=== PATIENT | male | born 1980 | race Hispanic/Latino ===

== ENCOUNTER 2019-10-10 21:50 | Inpatient (IN) | payer SELFPAY ==
[2019-10-10] MEDS ORDERED: Lorazepam 2 MG/ML VIAL ONE (22:42)
[2019-10-10] MEDS ORDERED: Adacel (T-DAP) 0.5 ML SYRINGE ONE (22:42)
[2019-10-10] MEDS ORDERED: Lorazepam 2 MG/ML VIAL SLOW IVP PRN ×2 (23:11→23:14)
[2019-10-10] MEDS ORDERED: Magnesium 2 GM/50 ML 2 GM in Premix Bag 1 BAG IVPB SCH (23:15)
[2019-10-10] MEDS ORDERED: Ondansetron ODT 4 MG TAB PO PRN (23:17)
[2019-10-10] MEDS ORDERED: Ondansetron PF 4 MG/2 ML Vial IVP PRN (23:17)
[2019-10-10] MEDS ORDERED: Diazepam 5 MG TAB PO PRN (23:39)
[2019-10-10] MEDS ORDERED: Diazepam 5 MG TAB PO SCH (23:45)
[2019-10-10] MEDS ORDERED: Thiamine HCl 200 MG/2 ML VIAL IM SCH (23:45)
--- NOTE | 2019-10-11 00:18 | PDOC.HHP ---
Hospitalist HPI - History of Present Illness Seizure, alcohol withdrawal History of Present Illness: PCP: NONE The patient is a 39/M with PMH significant for alcohol and drug abuse presents to the ER for the above complaint. The patient reports that he checked into a rehabilitation clinic, called [facility] on Wednesday morning. Last drink was the morning of his voluntary admission into the rehab center. This morning, he reports feeling nauseated and vomiting, unable to hold down any liquids. He does not recall anything after his vomiting spell, but he was told that he had a seizure. EMS was called. He has an extensive history of abusing alcohol. Reports drinking 2/3 of bourbon bottle daily for 5 years, then over the past 1-2 years changing to beer, drinking three, 24oz beers daily. ED Course: [place] [facility] CT brain + left scalp hematoma CT spine negative K 2.9 Na 139 LFTs elevated WBC 3.1 Plat 66 Given: 2 Ativan 60mEq potassium 1L NS Transfered to [place] [facility]: Given: tdap ativan 2mg IVP Allergies: Levaquin Home Meds: None Hospitalist ROS - Review of Systems Constitutional: denies: fever, chills Eyes: denies: pain, vision change, conjunctivae inflammation, eyelid inflammation, redness, other ENT: denies: ear pain, ear discharge, nose pain, nose discharge, nose congestion , mouth pain, mouth swelling, throat pain, throat swelling, other Respiratory: denies: cough, dry, shortness of breath, hemoptysis, SOB with excertion, pleuritic pain, sputum, wheezing, other Cardiovascular: denies: chest pain, palpitations, orthopnea, paroxysmal noc. dyspnea, edema, light headedness, other Gastrointestinal: reports: nausea, vomiting. denies: abdominal pain, diarrhea, constipation Genitourinary: denies: dysuria, frequency, incontinence, hematuria, retention, other Skin: denies: rash, bruising Neurological: denies: numbness, change in speech Hospitalist History - Past Medical History Source: patient Psych: reports: Addictions (alcohol and drug abuse) - Past Surgical History Past Surgical History: reports: Other (rhinoplasty) - Family History Family History: reports: Other (Father alcoholism) - Social History Smoking Status: Former smoker Tobacco Type: cigarettes Alcohol: reports: Heavy Drugs: reports: marijuana Living Situation: Alone Occupation: Lives in [place], currently unemployed Activity level: independent ambulation - Exam General Appearance: NAD, awake alert Eye: anicteric sclera ENT - other findings: right scalp hematoma, abrasion, superficial bite brooke on ant. tongue Neck: supple, no JVD Heart: RRR, no murmur, no gallops, no rubs, normal peripheral pulses Respiratory: CTAB, no wheezes, no rales, no ronchi, no tachypnea Gastrointestinal: soft, non-tender, normal bowel sounds, no guarding, no rigidity Extremities: no cyanosis, no edema Neurological: cranial nerve grossly intact, no focal deficits Musculoskeletal: normal tone, normal strength Psychiatric: normal affect, A&O x 3 Hospitalist Results - Radiology Interpretation CT scan - head Status: report reviewed by me Other Status: report reviewed by me Additional Comment: CT c spine negative Hospitalist H&P A/P - Problem (1) Alcohol withdrawal Code(s): F10.239 - ALCOHOL DEPENDENCE WITH WITHDRAWAL, UNSPECIFIED Status: Acute Assessment and Plan: Admit to stroke unit, inpatient status Expected stay > 2 midnights Will give IVF Initiate ASE protocol Librium scheduled and ativan prn Neuro checks q 4 hours Seizure precautions, fall precautions Start thiamine, B12, folic acid and multivitamin Give 2gm magnesium IVPB Check UDS CMP and CBC and mag level in am (2) Seizure Code(s): R56.9 - UNSPECIFIED CONVULSIONS Status: Acute Assessment and Plan: Likely secondary to alcohol withdrawals initiate seizure precautions ASE protocol Scheduled librium and ativan prn (3) Hypokalemia Code(s): E87.6 - HYPOKALEMIA Status: Acute Assessment and Plan: K 2.9, given 60mEq in ER Will give IVF with potassium Will check mag level Recheck level in am (4) Elevated LFTs Code(s): R79.89 - OTHER SPECIFIED ABNORMAL FINDINGS OF BLOOD CHEMISTRY Status : Acute Assessment and Plan: Likely secondary to alcohol abuse Not coagulopathic, does have low platelet count Will avoid hepatotoxic meds Will recheck in am (5) Alcohol abuse Code(s): F10.10 - ALCOHOL ABUSE, UNCOMPLICATED Status: Chronic Assessment and Plan: Patient is currently seeking help to quit Staying at [facility] (6) Thrombocytopenia Code(s): D69.6 - THROMBOCYTOPENIA, UNSPECIFIED Status: Acute Assessment and Plan: Platelets 66,000 INR 1.2 NO pharm DVT prophylaxis Will continue to monitor Will check CBC in am - Plan Plan: Consult PT Protonix GI prophylaxis SCDs DVT prophylaxis, no pharm prophylaxis Full Code Contact is sisterChyna at [phone] Morgan.
[2019-10-11] MEDS ORDERED: Diazepam 5 MG TAB PO PRN (04:00)
[2019-10-11] MEDS: D5 1/2 NS w/20 mEq KCL 1,000 ML IV SCH ×3 (04:25→16:06)
[2019-10-11 05:07] LABS: ALT (SGPT) 216 U/L (8-55); AST (SGOT) 259 U/L (5-34); Albumin 3.7 g/dL (3.5-5.0); Alkaline Phosphatase 145 U/L (40-110); Anion Gap 15 mmol/L (10-20); BUN (Urea Nitrogen) Less than 4 mg/dL (8.9-20.6); Bilirubin, Total 2.9 mg/dL (0.2-1.2); Calc. Creatinine Clearance 0 mL/min (70-130); Calcium 8.4 mg/dL (7.8-10.44); Carbon Dioxide 26 mmol/L (22-29); Chloride 99 mmol/L (98-107); Estimated GFR-MDRD Greater than 90; Globulin 2.5 g/dL (2.4-3.5); Glucose 105 mg/dL (70-105); Magnesium 2.3 mg/dL (1.6-2.6); Protein, Total 6.2 g/dL (6.0-8.3); Sodium 137 mmol/L (136-145)
[2019-10-11 05:22] VITALS: BMI 27.6
[2019-10-11] MEDS ORDERED: Potassium Chloride 20 MEQ TAB PO SCH (05:30)
[2019-10-11] MEDS ORDERED: cloNIDine 0.1 MG TAB PO PRN (05:37)
[2019-10-11 06:14] LABS: Amphetamine Not Detected (NotDetected); Barbiturates Screen Not Detected (NotDetected); Benzodiazepine Screen Detected (NotDetected); Cocaine Metabolite Screen Not Detected (NotDetected); Medtox Control Line Valid? VALID (VALID); Medtox Reader # READER 4; Methadone Not Detected (NotDetected); Methamphetamine Not Detected (NotDetected); Opiate Screen Not Detected (NotDetected); Oxycodone Screen Not Detected (NotDetected); Phencyclidine (PCP) Not Detected (NotDetected); THC/Cannabinoid Screen Not Detected (NotDetected); Tricyclic Screen Not Detected (NotDetected)
[2019-10-11 06:29] LABS: #Lymphocytes 0.8 thou/uL (1.20-3.40); #Monocytes 0.3 thou/uL (0.11-0.59); #Neutrophils 2.5 thou/uL (1.40-6.50); %Basophils 1.2 % (0.0-1.0); %Eosinophils 0.7 % (0.0-10.0); %Lymphocytes 21.9 % (21.0-51.0); %Monocytes 7.3 % (0.0-10.0); %Neutrophils 68.9 % (42.0-75.0); Hemoglobin 12.7 g/dL (14.0-18.0); Mean Corpuscular HGB CONC 33.7 g/dL (32.0-36.0); Mean Corpuscular Hemoglobin 31.9 pg (27.0-31.0); Mean Corpuscular Volume 94.8 fL (78.0-98.0); Mean Platelet Volume 9.3 fL (7.4-10.4); Platelet Count 63 thou/uL (130-400); RBC Distribution Width 14.8 % (11.5-14.5); Red Blood Cell (RBC) Count 3.98 mill/uL (4.70-6.10); White Blood Cell (WBC) Count 3.7 thou/uL (4.8-10.8)
[2019-10-11 06:30] LABS: Platelet Morphology Comment Appears Decreased
[2019-10-11] MEDS: cloNIDine 0.1 MG TAB PO SCH ×2 (08:24→20:13)
[2019-10-11] MEDS: Folic Acid 1 MG TAB PO SCH (08:24)
[2019-10-11] MEDS: Thiamine 100 MG TAB PO SCH (08:25)
[2019-10-11] MEDS: Cyanocobalamin (Vitamin B-12) 1,000 MCG TAB PO SCH (08:25)
[2019-10-11] MEDS: Magnesium Oxide 400 MG TAB PO SCH (08:25)
[2019-10-11] MEDS: Multivit, Therapeutic 1 TAB PO SCH (08:26)
[2019-10-11] MEDS: Potassium Chloride 20 MEQ TAB PO SCH ×2 (08:27→16:06)
--- NOTE | 2019-10-11 11:58 | PDOC.HOSPP ---
- Subjective Encounter Date: 10/11/19 Encounter Time: 11:50 Subjective: f/u for ETOH withdrawal seizure on current Librium/Ativan/Thiamine/B12. No recurrent seizure activity noted per nursing. Feels tired overall but improved. - Objective Vital Signs & Weight: Vital Signs (12 hours) Temp Pulse Pulse Pulse Resp BP BP 10/11/19 11:09 97.9 F 86 18 10/11/19 09:26 94 94 123/83 10/11/19 08:21 121/82 10/11/19 07:16 98.0 F 91 16 10/11/19 03:19 97.9 F 112 H 16 BP BP Pulse Ox 10/11/19 11:09 132/85 98 10/11/19 09:26 124/87 10/11/19 08:21 99 10/11/19 07:16 121/82 99 10/11/19 03:19 126/89 97 Weight Weight 181 lb 11.2 oz Result Diagrams: 10/11/19 04:32 10/11/19 04:32 Additional Labs: Laboratory Tests 10/10/19 10/11/19 10/11/19 18:47 04:32 04:32 Potassium 2.9 L* Total Bilirubin 2.1 H 2.9 H AST 338 H 259 H ALT 270 H 216 H TSH 3rd Generation 1.7420 U Benzodiazepines Scrn 10/11/19 05:50 Potassium Total Bilirubin AST ALT TSH 3rd Generation U Benzodiazepines Scrn Detected H Radiology Reviewed by me: Yes (CT brain - no acute process) EKG Reviewed by me: Yes (Tele - ) Hospitalist ROS - Medication Medications: Active Medications Generic Name Dose Route Start Last Admin Trade Name Latrice PRN Reason Stop Dose Admin Chlordiazepoxide HCl 10 mg 10/11/19 09:00 10/11/19 08:22 Librium PO 10 mg TID NICHOLAS Administration Clonidine 0.1 mg 10/11/19 09:00 10/11/19 08:24 Catapres PO Not Given BID NICHOLAS Cyanocobalamin 1,000 mcg 10/11/19 09:00 10/11/19 08:25 Vitamin B-12 PO 1,000 mcg DAILY NICHOLAS Administration Folic Acid 1 mg 10/11/19 09:00 10/11/19 08:24 Folvite PO 1 mg DAILY NICHOLAS Administration Potassium Chloride/Dextrose/Sod Cl 1,000 mls @ 125 mls/hr 10/10/19 23:45 08:32 D5 1/2 Ns W/20 Meq Kcl IV Not Given .Q8H NICHOLAS Magnesium Oxide 400 mg 10/11/19 09:00 10/11/19 08:25 Magnesium Oxide PO 400 mg DAILY NICHOLAS Administration Multivitamins 1 tab 10/11/19 09:00 10/11/19 08:26 Theragran PO 1 tab DAILY NICHOLAS Administration Pantoprazole Sodium 40 mg 10/11/19 09:00 10/11/19 08:23 Protonix PO 40 mg DAILY NICHOLAS Administration Potassium Chloride 20 meq 10/11/19 08:00 10/11/19 08:27 K-Dur PO 20 meq BID-WM NICHOLAS Administration Thiamine HCl 100 mg 10/11/19 09:00 10/11/19 08:25 Thiamine PO 100 mg DAILY NICHOLAS Administration - Exam General Appearance: NAD, awake alert Eye: PERRL, anicteric sclera ENT: no oropharyngeal lesions, dry oral mucosa ENT - other findings: contusion with ecchymosis of R frontal region Neck: supple, symmetric, no JVD, no thyromegaly Heart: RRR, no murmur, no gallops, no rubs, normal peripheral pulses Heart - other findings: S1, S2 Respiratory: CTAB, no wheezes, no rales, no ronchi, normal chest expansion Gastrointestinal: soft, non-tender, non-distended, normal bowel sounds, no palpable masses Extremities: no cyanosis, no clubbing, no edema Skin: normal turgor Neurological: cranial nerve grossly intact, no new deficit Musculoskeletal: normal tone, normal strength, no muscle wasting Psychiatric: normal affect, A&O x 3 Hosp A/P (1) Seizure Code(s): R56.9 - UNSPECIFIED CONVULSIONS Status: Acute Plan: ETOH withdrawal seizure, continue Librium po, Ativan PRN breakthrough seizures (2) Alcohol withdrawal Code(s): F10.239 - ALCOHOL DEPENDENCE WITH WITHDRAWAL, UNSPECIFIED Status: Acute Plan: See above #1 (3) Alcohol abuse Code(s): F10.10 - ALCOHOL ABUSE, UNCOMPLICATED Status: Chronic Plan: Continue rehab program in [place] after d/c, continue MVI, Thiamine, Folate (4) Transaminitis Code(s): R74.0 - NONSPEC ELEV OF LEVELS OF TRANSAMNS & LACTIC ACID DEHYDRGNSE Status: Chronic Plan: ETOH induced, serial monitoring (5) Hypokalemia Code(s): E87.6 - HYPOKALEMIA Status: Acute Plan: KCL supplementation, serial monitoring - Plan social services technician, out of bed/ambulate, DVT proph w/SCDs Stable currently Continue Librium Ativan PRN IV Continue MVI/Thiamine/Folate OOB with assist AM lab: CMP, CBC
[2019-10-12] MEDS: D5 1/2 NS w/20 mEq KCL 1,000 ML IV SCH ×3 (00:52→15:22)
[2019-10-12 03:19] LABS: Eosinophils 1 % (0-10); Hemoglobin 12.3 g/dL (14.0-18.0); Lymphocytes 34 % (21-51); MDiff Complete? YES; Mean Corpuscular HGB CONC 32.9 g/dL (32.0-36.0); Mean Corpuscular Volume 97.1 fL (78.0-98.0); Mean Platelet Volume 8.8 fL (7.4-10.4); Monocytes 6 % (0-10); Neutrophil 57 % (42-75); Platelet Count 53 thou/uL (130-400); Platelet Morphology Comment Appears Decreased; RBC Distribution Width 14.8 % (11.5-14.5); Reactive Lymphocytes 2 % (0-10); Red Blood Cell (RBC) Count 3.84 mill/uL (4.70-6.10); White Blood Cell (WBC) Count 3.5 thou/uL (4.8-10.8)
[2019-10-12 03:28] LABS: ALT (SGPT) 174 U/L (8-55); AST (SGOT) 170 U/L (5-34); Albumin 3.7 g/dL (3.5-5.0); Alkaline Phosphatase 193 U/L (40-110); Anion Gap 11 mmol/L (10-20); BUN (Urea Nitrogen) Less than 4 mg/dL (8.9-20.6); Bilirubin, Total 2.2 mg/dL (0.2-1.2); Calc. Creatinine Clearance 144 mL/min (70-130); Calcium 8.7 mg/dL (7.8-10.44); Carbon Dioxide 26 mmol/L (22-29); Chloride 107 mmol/L (98-107); Estimated GFR-MDRD Greater than 90; Globulin 2.7 g/dL (2.4-3.5); Glucose 98 mg/dL (70-105); Magnesium 1.9 mg/dL (1.6-2.6); Potassium 3.6 mmol/L (3.5-5.1); Protein, Total 6.4 g/dL (6.0-8.3); Sodium 140 mmol/L (136-145)
[2019-10-12] MEDS: Lorazepam 1 MG TAB PO PRN ×3 (04:59→15:42)
[2019-10-12] MEDS: cloNIDine 0.1 MG TAB PO SCH (09:10)
[2019-10-12] MEDS: Cyanocobalamin (Vitamin B-12) 1,000 MCG TAB PO SCH (09:12)
[2019-10-12] MEDS: Folic Acid 1 MG TAB PO SCH (09:12)
[2019-10-12] MEDS: Magnesium Oxide 400 MG TAB PO SCH (09:13)
[2019-10-12] MEDS: Thiamine 100 MG TAB PO SCH (09:13)
[2019-10-12] MEDS: Multivit, Therapeutic 1 TAB PO SCH (09:14)
[2019-10-12] MEDS: Potassium Chloride 20 MEQ TAB PO SCH ×2 (09:15→16:36)
--- NOTE | 2019-10-12 11:23 | PDOC.HOSPP ---
- Subjective Encounter Date: 10/12/19 Encounter Time: 11:15 Subjective: f/u for ETOH withdrawal seizure. No recurrent seizure activity per nursing. Feels better overall and no shakes this am. Appetite ok. - Objective Vital Signs & Weight: Vital Signs (12 hours) Temp Pulse Resp BP BP BP Pulse Ox 10/12/19 09:10 136/98 H 10/12/19 07:57 136/98 H 10/12/19 07:53 98.4 F 84 16 136/98 H 97 10/12/19 03:24 98.8 F 92 16 134/90 98 10/12/19 00:00 98.7 F 86 16 132/91 H 99 Weight Weight 181 lb 11.2 oz I&O: 10/11/19 10/12/19 10/13/19 06:59 06:59 06:59 Intake Total 3300 1615 Balance 3300 1615 Result Diagrams: 10/12/19 02:55 10/12/19 02:55 Additional Labs: Laboratory Tests 10/10/19 10/11/19 10/11/19 18:47 04:32 04:32 Potassium 2.9 L* Total Bilirubin 2.1 H 2.9 H AST 338 H 259 H ALT 270 H 216 H TSH 3rd Generation 1.7420 U Benzodiazepines Scrn 10/11/19 05:50 Potassium Total Bilirubin AST ALT TSH 3rd Generation U Benzodiazepines Scrn Detected H EKG Reviewed by me: Yes (Tele - SR) Hospitalist ROS - Medication Medications: Active Medications Generic Name Dose Route Start Last Admin Trade Name Freq PRN Reason Stop Dose Admin Chlordiazepoxide HCl 10 mg 10/11/19 09:00 10/12/19 09:10 Librium PO 10 mg TID NICHOLAS Administration Clonidine 0.1 mg 10/11/19 09:00 10/12/19 09:10 Catapres PO 0.1 mg BID NICHOLAS Administration Cyanocobalamin 1,000 mcg 10/11/19 09:00 10/12/19 09:12 Vitamin B-12 PO 1,000 mcg DAILY NICHOLAS Administration Folic Acid 1 mg 10/11/19 09:00 10/12/19 09:12 Folvite PO 1 mg DAILY NICHOLAS Administration Potassium Chloride/Dextrose/Sod Cl 1,000 mls @ 125 mls/hr 10/10/19 23:45 04/ 30/20 10:55 D5 1/2 Ns W/20 Meq Kcl IV 1,000 mls .Q8H NICHOLAS Administration Lorazepam 1 mg 10/11/19 05:27 10/12/19 09:11 Ativan PO 1 mg Q4H PRN Administration ASE >=9 Magnesium Oxide 400 mg 10/11/19 09:00 10/12/19 09:13 Magnesium Oxide PO 400 mg DAILY NICHOLAS Administration Multivitamins 1 tab 10/11/19 09:00 10/12/19 09:14 Theragran PO 1 tab DAILY NICHOLAS Administration Pantoprazole Sodium 40 mg 10/11/19 09:00 10/12/19 09:11 Protonix PO 40 mg DAILY NICHOLAS Administration Potassium Chloride 20 meq 10/11/19 08:00 10/12/19 09:15 K-Dur PO 20 meq BID-WM NICHOLAS Administration Sodium Chloride 10 ml 10/12/19 09:00 10/12/19 09:14 Flush - Normal Saline IVF 10 ml Q12HR NICHOLAS Administration Thiamine HCl 100 mg 10/11/19 09:00 10/12/19 09:13 Thiamine PO 100 mg DAILY NICHOLAS Administration - Exam General Appearance: NAD, awake alert Eye: PERRL, anicteric sclera Eye - other findings: R frontal hematoma ENT: no oropharyngeal lesions Neck: supple, symmetric, no JVD, no thyromegaly, no carotid bruit Heart: RRR, no murmur, no gallops, no rubs, normal peripheral pulses Heart - other findings: S1, S2 Respiratory: CTAB, no wheezes, no rales, no ronchi, normal chest expansion, no tachypnea Gastrointestinal: soft, non-tender, non-distended, normal bowel sounds, no palpable masses Extremities: no cyanosis, no clubbing, no edema Skin: normal turgor Neurological: cranial nerve grossly intact, no new deficit Musculoskeletal: normal tone, normal strength, no muscle wasting Psychiatric: normal affect, A&O x 3 Hosp A/P (1) Seizure Code(s): R56.9 - UNSPECIFIED CONVULSIONS Status: Acute Plan: Secondary to ETOH withdrawal, no recurrent seizures currently, continue Ativan/ Librium (2) Alcohol withdrawal Code(s): F10.239 - ALCOHOL DEPENDENCE WITH WITHDRAWAL, UNSPECIFIED Status: Acute Plan: See #1 (3) Alcohol abuse Code(s): F10.10 - ALCOHOL ABUSE, UNCOMPLICATED Status: Chronic Plan: Previously in [facility] for detox/rehab in [place], plans to return to program after d/c (4) Transaminitis Code(s): R74.0 - NONSPEC ELEV OF LEVELS OF TRANSAMNS & LACTIC ACID DEHYDRGNSE Status: Chronic (5) Hypokalemia Code(s): E87.6 - HYPOKALEMIA Status: Acute Plan: Improved, continue KCL supplementation - Plan social service liaison, out of bed/ambulate, DVT proph w/SCDs Stable currently Continue Librium Ativan PRN IV Continue MVI/Thiamine/Folate OOB with assist CM for dispo planning and return to [facility] in [place] AM lab: CMP
[2019-10-12 15:37] VITALS: BP 133/83; TEMP 98.3
--- NOTE | 2019-10-12 20:24 | DIS ---
DATE OF ADMISSION: 10/10/2019 DATE OF DISCHARGE: 10/12/2019 DISCHARGE DIAGNOSES: 1. Alcohol withdrawal seizure. 2. Alcohol abuse. 3. Transaminitis secondary to alcohol abuse. 4. Hypokalemia. CONSULTATIONS: None. PERTINENT LABORATORY AND X-RAY FINDINGS: Potassium ranged between 3.0 to 3.6. AST ranged between 170 to 259, ALT ranged between 174 to 216, total bilirubin ranged between 2.2 to 2.9, alkaline phosphatase ranged between 145 to 193. TSH 1.74. CBC showed a white blood cell count of 3.7, hemoglobin 12.7, hematocrit 38, and platelet count 63. Urine drug screen dated 10/11/2019, positive for benzodiazepines. CT of the brain without contrast dated 10/10/2019 showed no acute intracranial process. Right frontal scalp hematoma noted. CT of the cervical spine dated 10/10/2019 showed no evidence of fracture or dislocation. HOSPITAL COURSE: The patient was initially admitted after presenting status post alcohol withdrawal seizure. The patient with longstanding chronic alcoholism, presenting status post seizure activity, receiving IV Ativan and intravenous fluids. The patient also received IV magnesium as well as a banana bag. The patient was transitioned from IV Ativan to Librium and monitored post seizure. The patient did not exhibit a seizure activity during the hospital stay and overall clinically stabilized, receiving the ASE for alcohol withdrawal monitoring. The patient also received potassium supplementation and general electrolyte replacement. Disposition planning was regarding return to supervised alcohol detoxification program, however, the patient decided to leave against medical advice on 10/12/2019. Job ID: [id number]
== END 2019-10-12 17:52 | disposition left against medical advice (07) | DRG 894 ==
LOC: ERS 21:50 → 2SE 23:02
PROVIDERS: ADMIT Internal Medicine; ATTEND Family Medicine
PROC: HZ2ZZZZ Detoxification Services for Substance Abuse Treatment (ICD-10-PCS; principal; 2019-10-10)
DX: F10.239 Alcohol dependence with withdrawal, unspecified (principal); F41.9 Anxiety disorder, unspecified; E87.6 Hypokalemia; D69.6 Thrombocytopenia, unspecified; F32.9 Major depressive disorder, single episode, unspecified; R79.89 Other specified abnormal findings of blood chemistry; Z53.29 Procedure and treatment not carried out because of patient's decision for other reasons; Z88.1 Allergy status to other antibiotic agents; Z87.891 Personal history of nicotine dependence
CPT/HCPCS: 36415; 80053; 80306; 83735; 84443; 85007; 85025; 85027; 90471; 90715; 96374; J2060; J3411; J3475; J3480